=== PATIENT | female | born 1985 | race Caucasian/White ===

== ENCOUNTER 2016-09-02 06:37 | Day surgery (SDC) | payer OTHER ==
[~2016-09-02] VITALS: Ht 170.2 cm; Wt 104.3 kg
[~2016-09-02 06:37] MED LIST: PRILOSEC10 MG PO
[2016-09-02 07:15] VITALS: BP 125/89
[2016-09-02 10:30] VITALS: BP 117/84
[2016-09-02 11:40] VITALS: BP 116/69
[2016-09-02 12:30] VITALS: BP 119/78
== END 2016-09-02 12:30 | disposition home or self-care (01) ==
LOC: SDC 06:37
PROC: 0U574ZZ Destruction of Bilateral Fallopian Tubes, Percutaneous Endoscopic Approach (ICD-10-PCS; principal; 2016-09-02)
DX: Z30.2 Encounter for sterilization (principal); N80.3 Endometriosis of pelvic peritoneum
CPT/HCPCS: J0330; J0690; J1100; J1170; J1885; J2250; J2405; J2710; J2765; J3010